=== PATIENT | male | born 1940 | race Caucasian/White ===

== ENCOUNTER 2019-03-26 07:29 | Day surgery (SDC) | payer MEDICARE ==
[2019-03-25 15:12] LABS: BASOPHILS % (AUTO) 0.7 % (0-1); EOSINOPHILS # (AUTO) 0.2 X10'3 (0-0.9); HEMATOCRIT 52.9 % (42.0-52.0); HEMOGLOBIN 17.9 g/dl (14.0-17.9); LYMPHOCYTES # (AUTO) 1.6 X10'3 (1.1-4.8); LYMPHOCYTES % (AUTO) 33.7 % (21-51); MEAN CORPUSCULAR HEMOGLOBIN 32.5 PG (27.0-31.0); MEAN CORPUSCULAR HGB CONC 33.8 g/dL (33.0-36.5); MEAN PLATELET VOLUME 9.6 FL (7.4-10.4); MONOCYTES # (AUTO) 0.7 X10'3 (0-0.9); MONOCYTES % (AUTO) 15.3 % (2-12); NEUTROPHILS # (AUTO) 2.2 X10'3 (1.8-7.7); NEUTROPHILS % (AUTO) 46.3 % (42-75); PLATELET COUNT 166 X10'3 (140-440); RED BLOOD COUNT 5.51 X10'6 (4.70-6.10); RED CELL DISTRIBUTION WIDTH 13.9 % (11.5-14.5); WHITE BLOOD COUNT 4.7 X10'3 (4.5-11.0)
[2019-03-25 15:31] LABS: ALBUMIN 3.6 G/DL (3.4-5.0); ANION GAP 6 (8-16); BLOOD UREA NITROGEN 22 MG/DL (7-18); BUN/CREATININE RATIO 23.2 (5.4-32.0); CALCIUM 8.5 MG/DL (8.5-10.1); CHLORIDE 109 MMOL/L (99-107); CREATININE 0.95 MG/DL (0.60-1.10); GLUCOSE 90 MG/DL (70-104); SODIUM 143 MMOL/L (135-145); TOTAL CARBON DIOXIDE 27.8 MMOL/L (24-32); eGFR 77 ML/MIN
[2019-03-25 15:35] LABS: POTASSIUM 4.7 MMOL/L (3.5-5.1)
[2019-03-25 16:28] LABS: BANDS% (MANUAL) 5 % (0-10); LYMPHOCYTES % (MANUAL) 21 % (21-51); NEUTROPHILS % (MANUAL) 42 % (42-75); TOTAL CELLS COUNTED 200
[2019-03-25 16:29] LABS: EOSINOPHILS % (MANUAL) 5 % (0-6); MONOCYTES % (MANUAL) 11 % (2-12); PLATELET ESTIMATE NORMAL; REACTIVE LYMPHOCYTES % 16 % (0-0)
[2019-03-26] VITALS (10 sets, daily range): BP systolic 108–145; BP diastolic 64–106
[~2019-03-26] VITALS: Ht 177.8 cm; Wt 111.9 kg
[~2019-03-26 07:29] MED LIST: APIX5TAB3 PO; FOLI1TAB16 PO; FURO80TA87 PO; LISI40TA4 PO; SOTA80TA PO
[2019-03-26] MEDS ORDERED: normal saline 1000ml 1,000 ML IV SCH (07:50)
[2019-03-26] MEDS ORDERED: atropine 0.1mg/ml 10ml syringe IV ONE (07:50)
[2019-03-26] MEDS ORDERED: morphine 10mg/ml inj. IV ONE (07:50)
[2019-03-26] MEDS ORDERED: LORazepam 0.5 MG tablet PO ONE (07:50)
[2019-03-26] MEDS ORDERED: diphenhydrAMINE 25mg capsule PO ONE ×2 (07:50→07:55)
[2019-03-26] MEDS ORDERED: MIDAZolam 5mg/ml 2ml vial IV ONE (07:50)
[2019-03-26] MEDS ORDERED: amiodarone 150mg/dext, iso-os 100 ML IV ONE (11:50)
== END 2019-03-26 13:00 | disposition home or self-care (01) ==
LOC: SSTAY O 07:29
PROVIDERS: ATTEND Internal Medicine Cardiovascular Disease
DX: I48.92 Unspecified atrial flutter (principal); I48.0 Paroxysmal atrial fibrillation; Z88.8 Allergy status to other drugs, medicaments and biological substances
CPT/HCPCS: 36415; 80048; 85025; 85610; 92960; 93005; J0461; J2250; J2270; J7030; Q0163

== ENCOUNTER 2020-02-18 09:50 | Day surgery (SDC) | payer MEDICARE ==
[2020-02-17 11:24] LABS: BASOPHILS # (AUTO) 0.1 X10'3 (0-0.2); BASOPHILS % (AUTO) 0.8 % (0-1); EOSINOPHILS # (AUTO) 0.2 X10'3 (0-0.9); EOSINOPHILS % (AUTO) 2.9 % (0-6); HEMATOCRIT 47.2 % (42.0-52.0); HEMOGLOBIN 15.8 g/dl (14.0-17.9); LYMPHOCYTES # (AUTO) 1.6 X10'3 (1.1-4.8); LYMPHOCYTES % (AUTO) 18.9 % (21-51); MEAN CORPUSCULAR HEMOGLOBIN 32.1 PG (27.0-31.0); MEAN CORPUSCULAR HGB CONC 33.4 g/dL (33.0-36.5); MEAN CORPUSCULAR VOLUME 96.1 FL (78-98); MEAN PLATELET VOLUME 9.1 FL (7.4-10.4); MONOCYTES % (AUTO) 11.9 % (2-12); NEUTROPHILS # (AUTO) 5.5 X10'3 (1.8-7.7); NEUTROPHILS % (AUTO) 65.5 % (42-75); PLATELET COUNT 252 X10'3 (140-440); RED BLOOD COUNT 4.91 X10'6 (4.70-6.10); RED CELL DISTRIBUTION WIDTH 13.7 % (11.5-14.5); WHITE BLOOD COUNT 8.4 X10'3 (4.5-11.0)
[2020-02-17 11:35] LABS: ALBUMIN 3.5 G/DL (3.4-5.0); ANION GAP 8 (8-16); BLOOD UREA NITROGEN 16 MG/DL (7-18); CALCIUM 8.5 MG/DL (8.5-10.1); CHLORIDE 107 MMOL/L (99-107); GLUCOSE 100 MG/DL (70-104); POTASSIUM 4.6 MMOL/L (3.5-5.1); SODIUM 140 MMOL/L (135-145); TOTAL CARBON DIOXIDE 24.9 MMOL/L (24-32); eGFR > 90 ML/MIN
[2020-02-17 11:37] LABS: PARTIAL THROMBOPLASTIN TIME 29 SECONDS (22-32)
[2020-02-18] VITALS (11 sets, daily range): BP systolic 124–137; BP diastolic 53–95
[~2020-02-18] VITALS: Ht 177.8 cm; Wt 113.0 kg
[~2020-02-18 09:50] MED LIST changes: -FOLI1TAB16 PO; -FURO80TA87 PO
[2020-02-18] MEDS ORDERED: diphenhydrAMINE 25mg capsule PO PRN (10:10)
[2020-02-18] MEDS ORDERED: LORazepam 0.5 MG tablet PO PRN (10:10)
[2020-02-18] MEDS ORDERED: normal saline 1,000 ML IV SCH (10:10)
[2020-02-18] MEDS ORDERED: LIDOcaine/PRILOcaine 5gm cream TP ONE (10:15)
[2020-02-18] MEDS ORDERED: LISI-604 PO (10:16)
[2020-02-18] MEDS ORDERED: MULT-1085 PO (10:16)
[2020-02-18] MEDS ORDERED: ASCO125T PO (10:16)
[2020-02-18] MEDS ORDERED: nitroGLYCERIN-Tridil 50MG/D5W 250 ML IV ONE (13:28)
[2020-02-18] MEDS ORDERED: heparin 1,000unit/ml 10ml vial 10 ML ONE (13:29)
[2020-02-18] MEDS ORDERED: midazolam 2 mg/2 ml injection ONE (13:29)
[2020-02-18] MEDS ORDERED: ondansetron/PF 4mg/2ml inj ONE (13:29)
[2020-02-18] MEDS ORDERED: verapamil 2.5 mg/ml inj IV ONE (13:29)
[2020-02-18] MEDS ORDERED: fentaNYL/PF 50MCG/1 ML 2ML syringe ONE (13:29)
[2020-02-18] MEDS ORDERED: LIDOcaine 1% (10mg/ml)w/preservative injection 20ml MDV ONE (13:29)
[2020-02-18] MEDS ORDERED: iohexol 350MG/ML 100ml bottle IV ONE (13:30)
[2020-02-18] MEDS ORDERED: iohexol 350 MG/ML 50ML vial IV ONE (13:30)
[2020-02-18] MEDS ORDERED: HYDROcodone/acetaminophen 5mg/325mg tablet PO PRN (15:30)
[2020-02-18] MEDS ORDERED: HYDROcodone/acetaminophen 10/325mg tab PO PRN (15:30)
== END 2020-02-18 19:55 | disposition home or self-care (01) ==
LOC: SSTAY O 09:50
PROVIDERS: ATTEND Internal Medicine Cardiovascular Disease
DX: R94.39 Abnormal result of other cardiovascular function study (principal); I25.10 Atherosclerotic heart disease of native coronary artery without angina pectoris; I11.0 Hypertensive heart disease with heart failure; I50.32 Chronic diastolic (congestive) heart failure; E78.49 Other hyperlipidemia; I42.8 Other cardiomyopathies; M19.90 Unspecified osteoarthritis, unspecified site; I48.91 Unspecified atrial fibrillation; I70.213 Atherosclerosis of native arteries of extremities with intermittent claudication, bilateral legs; G47.30 Sleep apnea, unspecified; Z87.891 Personal history of nicotine dependence; Z79.899 Other long term (current) drug therapy; Z79.01 Long term (current) use of anticoagulants; Z98.890 Other specified postprocedural states; Z88.8 Allergy status to other drugs, medicaments and biological substances; Z83.3 Family history of diabetes mellitus
CPT/HCPCS: 36415; 76937; 80048; 85025; 85610; 85730; 93005; 93460; 99152; 99153; C1769; C1894; J1644; J2001; J2250; J2405; J3010; J7030; Q0163; Q9967; A4620; A5120; A6258; C1751; J3490